=== PATIENT | male | born 1955 | race African-American/Black ===

== ENCOUNTER 2016-03-29 20:32 | Emergency (ER) | payer BC ==
[~2016-03-29] VITALS: Ht 167.6 cm; Wt 73.1 kg
[~2016-03-29 20:32] MED LIST: ALBUTEROL SULF8.5 GM IH; HYCODAN SYRUP480 ML PO; MEDROL DOSEPAK4 MG PO; MOTRIN800 MG PO; NOHOMEMEDS; PREDNISONE20 MG PO; PREDNISONE50 MG PO; PROAIR HFA8.5 GM IH; PROVENTIL HFA6.7 GM IH; TESSALON PERLE100 MG PO; TESSALON200 MG PO; ULTRAM50 MG PO; VENTOLIN HFA18 GM IH; ZITHROMAX TRI-500 MG PO; ZITHROMAX Z-PA250 MG PO
[2016-03-29 21:42] LABS: HEMATOCRIT 44.5 % (38.0-50.0); MCH 31.4 PG (29.0-34.0); MCHC 34.8 G/DL (30.0-36.0); MCV 90.1 FL (86-99); MEAN PLAT.VOLUME 10.6 uM^3 (9.0-12.4); PLATELET COUNT 213 K/uL (156-360); RBC DIS.WIDTH-CV 14.3 % (11.8-14.6); RBC DIS.WIDTH-SD 46.1 % (39-53); RED BLOOD COUNT 4.94 M/uL (4.00-5.50); WHITE BLOOD COUNT 6.5 K/uL (4.1-10.2)
[2016-03-29 21:53] LABS: CHLORIDE 109 mEq/L (99-109); POTASSIUM 4.2 mEq/L (3.7-5.4); SODIUM 142 mEq/L (136-147)
[2016-03-29 21:55] LABS: GLUCOSE 130 mg/dL (70-99)
[2016-03-29 21:56] LABS: ANION GAP 9 MEQ/L (2-14)
[2016-03-29 21:59] LABS: GFR ESTIMATE (CALCULATED) > 59 mL/min/; UREA NITROGEN (BUN) 19 mg/dL (9-23)
[2016-03-29 22:05] LABS: TROP-I INTERPRETATION NEGATIVE; TROPONIN-I < 0.01 ng/mL (0.0-0.30)
[2016-03-30 00:42] LABS: INFLUENZA A VIRAL ANTIGEN NEGATIVE; INFLUENZA B VIRAL ANTIGEN NEGATIVE
[2016-03-30] MEDS ORDERED: PREDNISONE20 MG PO (00:58)
[2016-03-30] MEDS ORDERED: VENTOLIN HFA18 GM IH (00:58)
[2016-03-30 01:24] VITALS: BP 166/89
== END 2016-03-30 01:26 | disposition home or self-care (01) ==
LOC: EXP 20:32 → EME 20:32 → EXP 03-30 01:26
DX: J06.9 Acute upper respiratory infection, unspecified (principal)
CPT/HCPCS: 71020; 80048; 84484; 85027; 87502; 93005; 94640; 99281; 99284; J7512